=== PATIENT | female | born 1935 | race Caucasian/White ===

== ENCOUNTER 2017-10-26 15:01 | Emergency (ER) | payer MEDICARE, OTHER ==
[~2017-10-26 15:01] MED LIST: ACE325 PO; AMI25 PO; AMIT-104 PO; AMIT-106 PO; ASC500 PO; ASCO-191 PO; ASPI-715 PO; ASPI81TA94 PO; BRIM5DRO7 OP; CEFU250 PO; CEPH-13 PO; CHOL10005 PO; CIP500 PO; CIPR-212 PO; CIPR-214 PO; CIPR-215 PO; CLI150 PO; CLO10 MT; CLON-331 PO; COMODPT OP; CRAN500T PO; DAR100 PO; DOC100 PO; EST3 PO; ESTR-25 PO; EVEP1CAP2 PO; FAM20 PO; FLUC200T52 PO; GAB300 PO; GLUC-158 PO; GLUC500C29 PO; IBU200 PO; IBU600 PO; LACT1CAP6 PO; LATODPT OD; LATODPT OP; LEVO50TA80 PO; LEVO50TA86 PO; LOP2 PO; LOPE1TAB55 PO; LUTE20CA11 PO; MAGN200T6 PO; METAMUCIL POWD283 GM PO; METO-259 PO; METO50TA19 PO; NIT4 SL; NITR0.4T3 SL; NYST100040 PO; OXYC-373 PO; PER PO; PHENA200 PO; PNEU0.5D3 IM; PRE10 PO; PSYL0.4C PO; PSYL0.5240 PO; RIZA10 PO; RIZA5TAB30 PO; SCOT TD; SIM10 PO; SIMV10TA98 PO; SOLI5TAB PO; SPIR25TA76 PO; TRI100 PO; VITA-131 PO; [UNRECOGNIZED DRUG - CODE] PO
--- NOTE | 2017-10-26 15:12 | ER Report ---
History and Physical Time Seen By MD: 15:07 Hx. of Stated Complaint: Patient missed her last step around 1130 and injured left ankle HPI/ROS CHIEF COMPLAINT: Left ankle pain HISTORY OF PRESENT ILLNESS: 82-year-old female patient presents to emergency room with complaint of left ankle pain. Patient states she was walking down the stairs today approximately 11:30 when she missed the last step and fell twisting her left ankle. Patient states she has pain to the ankle, although she is able to walk with it. She states she has no weakness or difficulty with that. She states that she did apply some ice, elevated and rested. She states that when the swelling seemed to worsen she decided come in for evaluation. Patient states that she did take some ibuprofen for this with some improvement in pain. Patient denies hitting her head or having pain anywhere else. REVIEW OF SYSTEMS: Respiratory: No cough, no dyspnea. Cardiovascular: No chest pain, no palpitations. Gastrointestinal: No vomiting, no abdominal pain. Musculoskeletal: As noted above Allergies: Coded Allergies: adhesive (Unverified Allergy, Severe, rash, skin baca, 10/26/17) dorzolamide (Unverified Allergy, Severe, itching of eyes with drainage, ) Sulfa (Sulfonamide Antibiotics) (Verified Allergy, Intermediate, rash, ) codeine (Verified Allergy, Intermediate, dizzy, 10/26/17) nitrofurantoin (Verified Allergy, Intermediate, rash, 10/26/17) penicillin G (Verified Allergy, Intermediate, rash, 10/26/17) Home Meds Active Scripts Amitriptyline Hcl (AMITRIPTYLINE HCL) 25 Mg Tablet, 1 TAB PO QHS, #90 TAB 4 Refills Prov:JANELLE GARCIA MD 10/23/17 Rizatriptan Benzoate (MAXALT) 5 Mg Tablet, 1 TAB PO DAILY Y for migraine, #30 TAB 0 Refills Prov:JANELLE GARCIA MD 06/10/17 Metoprolol Succinate (METOPROLOL SUCCINATE) 50 Mg Tab.er.24h, 3 TAB PO QDAY, # 270 TAB 2 Refills Prov:JANELLE GARCIA MD 03/08/17 Simvastatin (SIMVASTATIN) 10 Mg Tablet, 1 TAB PO HS, #90 TAB 3 Refills Prov:JANELLE GARCIA MD 12/18/16 Estrogens Conjugated (PREMARIN) 0.3 Mg Tab, 1 TAB PO QDAY, #90 TAB 3 Refills Prov:BABRRA ANNE APRN CANARY RAISER-C 12/07/16 Levothyroxine Sodium (LEVOTHYROXINE SODIUM) 50 Mcg Tablet, 1 TAB PO QDAY, #90 TAB 3 Refills Prov:JANELLE GARCIA MD 10/10/16 Clonazepam (CLONAZEPAM) 0.5 Mg Tablet, 0.25-1 TAB PO TID Y for ANXIETY, #90 TAB 1 Refill Prov:JANELLE GARCIA MD 10/09/16 Nitroglycerin (NITROGLYCERIN) 0.4 Mg Tab.subl, 1 TAB SL Q5MIN Y for esophageal spasm, #25 TAB 2 Refills Prov:JANELLE GARCIA MD 09/15/15 Reported Medications Timolol Maleate (Timolol Maleate) 0.5 % Drop.daily, 1 DROP OU DAILY 10/26/17 Psyllium Husk (PSYLLIUM FIBER) 0.52 Gm Capsule, 5 CAP PO DAILY, CAPSULE 10/26/17 Magnesium (MAGNESIUM) 200 Mg Tablet, 1 TAB PO BID 09/21/16 Cranberry Fruit (Cranberry) 500 Mg Tab.chew, 1 TAB PO QDAY 09/21/16 Trimethoprim (TRIMETHOPRIM) 100 Mg Tab, 1 TAB PO QDAY, TAB X 6 weeks, then alternates with Cipro 09/20/16 Lactobacillus Combination No.4 (PROBIOTIC) 1 Each Capsule, 1 CAP PO QDAY, CAPSULE 08/03/14 Evepr/Linoleic/Gamolenic/Cranb (EVENING PRIMROSE OIL SOFTGEL) 1 Each Capsule, 1 CAP PO QDAY, CAPSULE 08/03/14 Lutein (LUTEIN) 20 Mg Capsule, 1 CAP PO QDAY, CAPSULE 08/03/14 Ascorbic Acid (VITAMIN C) 1,000 Mg Tablet, 1 TAB PO QDAY 08/03/14 Loperamide Hcl/Simethicone (IMODIUM MULTI-SYMPTOM REL CPLT) 1 Each Tablet, 0.5- 1 TAB PO DAILY Y for diarrhea 08/03/14 Aspirin (ASPIRIN) 81 Mg Tab.chew, 1 TAB PO QDAY, TAB.CHEW 07/29/14 Gluc/Jakob-Msm#1/Vit C/Esvin/Bor (QMVSEWM-AWSVA-XZL COMPLEX CPLT) 1 Each Tablet, 1 TAB PO BID 03/30/14 Latanoprost (TRAVATAN Z) 2.5 Ml Soln, 1 GTT OD QHS 12/10/13 Cholecalciferol (Vitamin D3) (VITAMIN D3) 1,000 Unit Tablet, 1 CAP PO QDAY 09/14/13 Vitamin B Complex (VITAMIN B COMPLEX) 1 Each Tablet, 1 TAB PO DAILY 09/14/13 Solifenacin Succinate (VESICARE) 5 Mg Tablet, 1 TAB PO QHS 09/14/13 Discontinued Reported Medications Ciprofloxacin Hcl (CIPROFLOXACIN HCL) 250 Mg Tablet, 0.5 TAB PO QDAY, TAB X 6 weeks, then alternates with TMP 05/17/16 Psyllium Husk (Psyllium) 0.4 Gram Capsule, 1 CAP PO BID 09/15/15 Discontinued Scripts Amitriptyline Hcl (AMITRIPTYLINE HCL) 25 Mg Tablet, 1 TAB PO QHS, #90 TAB 3 Refills Prov:JANELLE GARCIA MD 10/24/16 Past Medical/Surgical History Patient has a past medical history of migraines, irregular heartbeat, hypertension, hyperlipidemia, recurrent UTIs, arthritis, glaucoma, hypothyroidism. Patient has surgical history of cataract surgery, tonsillectomy, surgery for Mae's neuroma, bunion, bladder suspension, D&C. Patient has a family medical history of cancer, CAD. Reviewed Nurses Notes: Yes Smoking Status: Never Smoker Exposure to Second Hand Smoke?: Yes Constitutional Vital Sign - Last 24 Hours 10/26/17 10/26/17 15:06 16:35 Temp 98.1 Pulse 72 64 Resp 16 18 B/P (MAP) 181/77 142/81 (101) Pulse Ox 93 91 O2 Delivery Room Air Physical Exam General Appearance: The patient is alert, has no immediate need for airway protection and no current signs of toxicity. Respiratory: Chest is non tender, lungs are clear to auscultation. Cardiac: regular rate and rhythm Gastrointestinal: Abdomen is soft and non tender, no masses, bowel sounds normal. Musculoskeletal: Neck: Neck is supple and non tender. Extremities have full range of motion and are non tender. Patient does have swelling to the left ankle, no bruising noted, patient has good strength with dorsiflexion and plantar flexion Skin: No rashes or lesions. DIFFERENTIAL DIAGNOSIS: After history and physical exam differential diagnosis was considered for fracture, contusion, sprain. Medical Decision Making EKG/Imaging Imaging ANKLE 3 VIEW MIN LEFT Indication: Left ankle pain after fall. Comparison: None Available Findings: 3 views left ankle. No acute fracture or dislocation. Tiny avulsion off the medial malleolus is likely chronic. No bony lesions or significant degenerative changes. Tiny calcaneal spur. Prominent lateral soft tissue swelling. No radiopaque foreign body. Small joint effusion. IMPRESSION: 1. No acute osseous abnormality of the left ankle. Prominent lateral soft tissue swelling and small joint effusion. Report Dictated By: Abhi Skelton at 10/26/2017 3:55 PM Report E-Signed By: Abhi Skelton at 10/26/2017 3:58 PM ED Course/Re-evaluation ED Course Patient was admitted and examined, history and physical were obtained. Differential diagnoses were considered. On examination patient does have some swelling to the lateral aspect of the left ankle. Patient had good strength with dorsiflexion and plantar flexion. Patient had no numbness and tingling to the toes. X-rays done of the left ankle which was negative. I discussed the findings with the patient. I believe that she has an ankle sprain. We discussed doing an ankle brace, which the patient refused. We did go ahead and replace her Sanford wrap. She states she did have some improved comfort with that. We'll go ahead and discharge patient home at this time. We will continue with conservative treatment of rest, ice, compression and elevation. He is to take Tylenol or ibuprofen as needed for pain. Patient verbalized understanding and agreement with plan. Decision to Disposition Date: Oct 26, 2017 Decision to Disposition Time: 16:26 Depart Departure Latest Vital Signs Vital Signs Date Time Temp Pulse Resp B/P (MAP) Pulse Ox O2 Delivery O2 Flow Rate FiO2 10/26/17 16:35 64 18 142/81 (101) 91 10/26/17 15:06 98.1 Room Air Impression: Primary Impression: Ankle sprain Condition: Improved Disposition: HOME OR SELF-CARE Referrals: JANELLE GARCIA MD (PCP) Patient Instructions: Ankle Sprain (ED) Additional Instructions: Limit activity by pain. Ice the ankle 2-3 times a day for 10-15 minutes. You may walk, but if pain persists or worsens with activity you should stop. Take Tylenol or Ibuprofen as needed for pain. Return to the ER if condition worsens. Follow up with your primary care provider in the next week. Problem Qualifiers Primary Impression: Ankle sprain Encounter type: initial encounter Involved ligament of ankle: unspecified ligament Laterality: left Qualified Codes: S93.402A - Sprain of unspecified ligament of left ankle, initial encounter WESTLEY DE LEON Oct 26, 2017 15:12
[2017-10-26] MEDS ORDERED: PSYL0.5234 PO (15:17)
[2017-10-26] MEDS ORDERED: TIMO5DRO8 OU (15:19)
--- NOTE | 2017-10-26 16:01 | RADIOLOGY IMAGING REPORT ---
FACILITY: [facility] PATIENT NAME: Courtney Oden : 1935 MR: [id number] V: [id number] EXAM DATE: ORDERING PHYSICIAN: WESTLEY DE LEON TECHNOLOGIST: Location: [facility] - [place] Patient: Courtney Oden : 1935 Visit/Account:[id number] Date of Sevice: 10/26/2017 ANKLE 3 VIEW MIN LEFT Indication: Left ankle pain after fall. Comparison: None Available Findings: 3 views left ankle. No acute fracture or dislocation. Tiny avulsion off the medial malleolus is likel y chronic. No bony lesions or significant degenerative changes. Tiny calcaneal spur. Prominent latera l soft tissue swelling. No radiopaque foreign body. Small joint effusion. IMPRESSION: 1. No acute osseous abnormality of the left ankle. Prominent lateral soft tissue swelling and small j oint effusion. Report Dictated By: Abhi Skelton at 10/26/2017 3:55 PM Report E-Signed By: Abhi Skelton at 10/26/2017 3:58 PM WSN:[id number]
[2017-10-26 16:35] VITALS: BP 142/81
== END 2017-10-26 16:39 | disposition home or self-care (01) ==
LOC: ER 15:07
DX: S93.402A Sprain of unspecified ligament of left ankle, initial encounter (principal); W10.9XXA Fall (on) (from) unspecified stairs and steps, initial encounter
CPT/HCPCS: 99283

== ENCOUNTER 2017-12-12 00:12 | Day surgery (SDC) | payer MEDICARE, OTHER ==
[~2017-12-12] VITALS: Ht 163.8 cm; Wt 59.4 kg
[~2017-12-12 00:12] MED LIST changes: +OMEP-218 PO; +PSYL0.5234 PO; +TIMO5DRO8 OU
[2017-12-12 09:02] VITALS: BP 156/95
[2017-12-12] MEDS ORDERED: NORMOSOL R SOLN(*) 1000 ML BAG 1,000 ML IV PRN (09:30)
[2017-12-12] MEDS ORDERED: LIDOCAINE/SOD BICARB 8.4% SYR ID ONE (09:30)
[2017-12-12 11:51] VITALS: BP 105/49
[2017-12-12 12:00] VITALS: BP 123/71
[2017-12-12 12:13] VITALS: BP 132/89
[2017-12-12 12:15] VITALS: BP 140/85
[2017-12-12] MEDS ORDERED: PROPOFOL EMUL(*) 10MG/ML 20 ML 60 ML ONE (16:38)
== END 2017-12-12 12:20 | disposition home or self-care (01) ==
LOC: OR 00:12
PROVIDERS: ATTEND Internal Medicine Gastroenterology
DX: K20.9 Esophagitis, unspecified (principal); K22.2 Esophageal obstruction; K44.9 Diaphragmatic hernia without obstruction or gangrene; K29.70 Gastritis, unspecified, without bleeding
CPT/HCPCS: 43239; 43248; 88305; 88313; 88344; J2704

== ENCOUNTER → 2017-12-24 | Outpatient (CLI) | payer MEDICARE, OTHER | LOC: LAB 14:13 | PROVIDERS: ATTEND Urology | DX: N39.0 Urinary tract infection, site not specified (principal) | CPT/HCPCS: 81001; 87088 ==

== ENCOUNTER → 2018-01-15 | Outpatient (CLI) | payer MEDICARE, OTHER ==
[~2018-01-15] MED LIST changes: +CLO10 PO
== END ==
LOC: LAB 16:10
PROVIDERS: ATTEND Urology
DX: N39.0 Urinary tract infection, site not specified (principal)
CPT/HCPCS: 81001; 87088

== ENCOUNTER → 2018-02-11 | Outpatient (CLI) | payer MEDICARE, OTHER ==
[~2018-02-11] MED LIST changes: +BUDE1AMP PO; +NYST100016 PO
== END ==
LOC: LAB 11:00
PROVIDERS: ATTEND Urology
DX: N39.0 Urinary tract infection, site not specified (principal)
CPT/HCPCS: 81001; 87088

== ENCOUNTER → 2018-02-26 | Outpatient (CLI) | payer MEDICARE, OTHER | LOC: LAB 16:30 | PROVIDERS: ATTEND Urology | DX: N39.0 Urinary tract infection, site not specified (principal) | CPT/HCPCS: 81001; 87077; 87088; 87186 ==

== ENCOUNTER → 2018-03-12 | Outpatient (CLI) | payer MEDICARE, OTHER ==
[~2018-03-12] MED LIST changes: +ACET500T68 PO; +CIPR-344 PO; +OXYC-865 PO; +TRI100 FT
== END ==
LOC: LAB 13:46
PROVIDERS: ATTEND Otolaryngology
DX: Z91.018 Allergy to other foods (principal)
CPT/HCPCS: 36415; 86003

== ENCOUNTER → 2018-03-14 | Outpatient (CLI) | payer MEDICARE, OTHER ==
--- NOTE | 2018-03-14 15:42 | RADIOLOGY IMAGING REPORT ---
FACILITY: [facility] - [place] PATIENT NAME: COLIN LESLIE : [id number] MR: [id number] V: [id number] EXAM DATE: ORDERING PHYSICIAN: MEDARDO MARTÍNEZ TECHNOLOGIST: Viri Hyatt PROCEDURE:BILATERAL DIGITAL SCREENING MAMMOGRAM WITH CAD ASSISTED INTERPRETATION & 3D TOMOSYNTHESIS COMPARISON:Prior mammograms 02/11/17, 01/23/17, 01/20/16, 12/31/14, 12/21/13, 12/19/12. INDICATIONS:screening FINDINGS: The breasts are heterogeneously dense which can obscure small masses. The parenchymal pattern has remained stable allowing for difference in mammographic technique & patient positioning. There is a biopsy clip in the medial inferior Left breast that has remained stable. DIAGNOSTIC CATEGORY 2--BENIGN FINDING. RECOMMENDATIONS: ROUTINE MAMMOGRAM AND CLINICAL EVALUATION. IMPRESSION: BIRADS 2: Benign finding. No significant abnormality is seen. Dictated by: Delfina Nelson M.D. on 03/14/2018 at 15:32 Transcribed by: JENNIFER on 03/14/2018 at 15:39 Approved by: Delfina Nelson M.D. on 03/14/2018 at 15:41 [facility]
== END ==
LOC: MAMO 00:14
PROVIDERS: ATTEND Obstetrics & Gynecology
DX: Z12.31 Encounter for screening mammogram for malignant neoplasm of breast (principal); R29.890 Loss of height
CPT/HCPCS: 77063; 77067

== ENCOUNTER → 2018-03-19 | Outpatient (CLI) | payer MEDICARE, OTHER ==
--- NOTE | 2018-03-19 16:25 | RADIOLOGY IMAGING REPORT ---
FACILITY: [facility] PATIENT NAME: Courtney Oden : 1935 MR: [id number] V: [id number] EXAM DATE: ORDERING PHYSICIAN: MEDARDO MARTÍNEZ [place]CHN[place] [facility] [place]ney [place] : 1935 Visit/Account:[id number] Date of Sevice: 03/19/2018 DEXA Scan Clinical history: Age related osteoporosis. Comparison: DEXA scan from 02/01/2014. LUMBAR SPINE: The bone mineral density (BMD) measured from L1-L4 correlates with a Z-score of 2.6 and a T-score of 0.5 which is Normal as defined by the World Health Organization. The corresponding risk of fracture in the lumbar spine is Not increased compared with a young adult reference population. This value saucedo s increased by 0.4 % since the prior study. More than 5% change is considered significant. HIP: Bone mineral density (BMD) measured in the LEFT total hip region correlates with a Z-score 0.9 and a T-score of -1.4 which is osteopenia as defined by the World Health Organization. The corresponding r isk of fracture in the hip is 2-3 times increased compared to a young adult reference population. Thi s value has decreased by 7.8 % since the prior study. More than 5% change is considered significant. T score left femoral neck -2.1 Bone mineral density (BMD) measured in the Femoral Neck region measures 0.752 g/cm?. IMPRESSION: 1. Lumbar spine: Normal. There has been 0.4% increase in the bone mineral density since the previou s exam. 2. Left Total Hip: Osteopenia. There has been 7.8% decrease in the bone mineral density since the p revious exam. 3. Femoral Neck: Bone Mineral Density is 0.752 g/cm? The next DEXA scan of this patient should include the following sites: L1-L4 and the left hip. FRAX? WHO Fracture Risk Assessment Tool link: <http://www.shef.ac.uk/FRAX/tool.jsp?locationValue=9> PLEASE NOTE: 1) The World Health Organization defines low BMD as follows: T-score Normal > -1 Osteopenia < -1 and > -2.5 Osteoporosis < -2.5 without fractures Established osteoporosis < -2.5 with fractures 2) In general, you may wish to consider: Diagnosis Treatment Follow-up DEXA Normal BMD Prevention 2-3 years Osteopenia Prevention/therapy 1-2 years Osteoporosis Therapy Yearly 3) Fracture risk estimated from the T-score is more accurate for vertebral fractures (often spontane ous) than for hip fractures. Report Dictated By: Delfina Nelson MD at 03/19/2018 4:18 PM Report E-Signed By: Delfina Nelson MD at 03/19/2018 4:21 PM WSN:[email or web address]
== END ==
LOC: RAD 08:49
PROVIDERS: ATTEND Obstetrics & Gynecology
DX: M85.80 Other specified disorders of bone density and structure, unspecified site (principal)
CPT/HCPCS: 77080

== ENCOUNTER → 2018-03-24 | Outpatient (CLI) | payer MEDICARE, OTHER | LOC: LAB 15:34 | PROVIDERS: ATTEND Urology | DX: N39.0 Urinary tract infection, site not specified (principal); B96.89 Other specified bacterial agents as the cause of diseases classified elsewhere | CPT/HCPCS: 81001; 87077; 87088; 87186 ==

== ENCOUNTER → 2018-05-06 | Outpatient (CLI) | payer MEDICARE, OTHER ==
--- NOTE | 2018-05-06 11:19 | RADIOLOGY IMAGING REPORT ---
FACILITY: [facility] - [place] PATIENT NAME: Courtney Oden : 1935 MR: [id number] V: [id number] EXAM DATE: ORDERING PHYSICIAN: LUIS BRADFORD TECHNOLOGIST: [place] [facility] [place] O[place] : 1935 Visit/Account:[id number] Date of Sevice: 05/06/2018 Renal ultrasound HISTORY: Recurrent UTIs COMPARISON: None. TECHNIQUE: Brady scale, color and Duplex imaging of the kidneys and bladder was performed. FINDINGS: Kidneys: Right kidney- 9.5 x 3.5 x 4.5cm , normal parenchymal thickness and echogenicity. Left kidney- 10 x 4 x 3cm , normal parenchymal thickness and echogenicity. Uniform and symmetric blood flow in each kidney by Doppler ultrasound. Hydronephrosis: None. Bladder: Bladder contours are normal. Post void bladder volume was 8 cc. Both ureteral jets are doc umented.. Abdominal aorta and IVC: Patent by Doppler ultrasound. IMPRESSION: 1. Unremarkable ultrasound of the kidneys and bladder. Report Dictated By: Abhi Stinson MD at 05/06/2018 10:54 AM Report E-Signed By: Abhi Stinson MD at 05/06/2018 11:15 AM WSN:[email or web address]
== END ==
LOC: US 01:55
PROVIDERS: ATTEND Urology
DX: N39.0 Urinary tract infection, site not specified (principal); N39.46 Mixed incontinence
CPT/HCPCS: 76705

== ENCOUNTER → 2018-05-20 | Outpatient (CLI) | payer MEDICARE, OTHER | LOC: LAB 12:11 | PROVIDERS: ATTEND Urology | DX: N39.0 Urinary tract infection, site not specified (principal); B96.89 Other specified bacterial agents as the cause of diseases classified elsewhere | CPT/HCPCS: 81001; 87077; 87088; 87186 ==

== ENCOUNTER → 2018-06-09 | Outpatient (CLI) | payer MEDICARE, OTHER | LOC: LAB 09:18 | PROVIDERS: ATTEND Urology | DX: N39.0 Urinary tract infection, site not specified (principal); B96.89 Other specified bacterial agents as the cause of diseases classified elsewhere | CPT/HCPCS: 81001; 87077; 87088; 87186 ==

== ENCOUNTER → 2018-06-19 | Outpatient (CLI) | payer MEDICARE, OTHER ==
[~2018-06-19] MED LIST changes: +CRAN450T PO; +ESTR0.62 PO; +HYDR-4225 PO; -LATODPT OD; +LATODPT OU; +METO100T20 PO; +RIZA5TAB26 PO; +SIMV-49 PO
[2018-06-19 12:27] LABS: PLATELET COUNT, AUTOMATED 274 K/uL (150-450)
== END ==
LOC: LAB 11:56
PROVIDERS: ATTEND Emergency Medicine
DX: I10 Essential (primary) hypertension (principal); M81.0 Age-related osteoporosis without current pathological fracture
CPT/HCPCS: 36415; 82306; 82607; 85025

== ENCOUNTER 2018-06-26 00:44 | Day surgery (SDC) | payer MEDICARE, OTHER ==
[~2018-06-26] VITALS: Ht 162.6 cm; Wt 59.0 kg
[2018-06-26 09:09] VITALS: BP 154/93
[2018-06-26] MEDS ORDERED: NORMOSOL R SOLN(*) 1000 ML BAG 1,000 ML IV PRN (09:20)
[2018-06-26] MEDS ORDERED: LIDOCAINE/SOD BICARB 8.4% SYR ID ONE (09:20)
[2018-06-26 11:26] VITALS: BP 123/62
[2018-06-26 11:30] VITALS: BP 124/61
[2018-06-26 11:45] VITALS: BP 128/64
[2018-06-26 12:12] VITALS: BP 149/89
[2018-06-26 12:19] VITALS: BP 148/90
[2018-06-27] MEDS ORDERED: IBUP-1671 PO (11:03)
[2018-06-27] MEDS ORDERED: ACET500T68 PO (11:03)
[2018-06-27] MEDS ORDERED: LORA5TAB16 PO (11:04)
== END 2018-06-26 12:45 | disposition home or self-care (01) ==
LOC: OR 00:44
PROVIDERS: ATTEND Internal Medicine Gastroenterology
DX: K64.8 Other hemorrhoids (principal); K57.30 Diverticulosis of large intestine without perforation or abscess without bleeding
CPT/HCPCS: 88305

== ENCOUNTER → 2018-07-01 | Outpatient (CLI) | payer MEDICARE, OTHER ==
[~2018-07-01] MED LIST changes: +IBUP-1671 PO; +LORA5TAB16 PO
== END ==
LOC: LAB 10:00
PROVIDERS: ATTEND Urology
DX: N39.0 Urinary tract infection, site not specified (principal)
CPT/HCPCS: 81001; 87088